=== PATIENT | male | born 1945 | race Caucasian/White ===

== ENCOUNTER 2024-03-08 06:00 | Inpatient (IN) | payer MEDICARE, SELFPAY ==
[2024-03-01 08:47] VITALS: BMI 26.7
[2024-03-08] VITALS (14 sets, daily range): BP systolic 96–164; BP diastolic 51–77; PULSE 71–95; RESP 12–20; TEMP 35.8–36.8; O2SAT 92–98; BMI 26.9
[2024-03-08] MEDS: LACTATED RINGERS 1,000 ML 42 ML IV ×2 (06:43→08:15)
--- NOTE | 2024-03-08 07:24 | PM.PREOP ---
Pre-operative Note Interval Note History & Physical reviewed/Exam performed by Physician: Yes Changes to H&P: No
[2024-03-08] MEDS: ACETAMINOPHEN 325 MG TABLET 975 MG PO (07:37)
[2024-03-08] MEDS: CEFAZOLIN 2 GM/100 ML PREMIX 100 ML IV ×3 (08:05→23:17)
[2024-03-08] MEDS: BUPIVACAINE 0.25% (PF) 30 ML, EPINEPHrine 0.15 MG INJ (08:17)
[2024-03-08] MEDS: BUPIVACAINE LIPOSOME 266 MG/20 ML VIAL INJ (08:18)
--- NOTE | 2024-03-08 08:20 | SUR.OPER ---
Prone on spine table, head in foam head support, padded chest and pelvic supports, gel pad at knees, lower legs supported by pillows; nipples, genitalia and toes free of pressure, arms secured on foam padded arm boards at <90 degrees abduction. Tape over blanket at thigh secured to table.
--- NOTE | 2024-03-08 10:14 | DI.RAD.S_ITS ---
PROCEDURE: XR LUMBAR SPINE 2V INDICATIONS: L3-4 TLIF TECHNIQUE: 3 views of the lumbar spine were acquired. COMPARISON: None. FINDINGS: Frontal and lateral fluoroscopic spot images are submitted, 2 images total. Postoperative changes are noted with pedicle screws, posterior fixation rods and intervertebral metallic cage reported in history as L3-4 TLIF. Fluoroscopic dose values are not delineated. IMPRESSION: Limited fluoroscopic spot images status post TLIF as discussed above. Dictated by: Theron Smith M.D. on 03/08/2024 at 10:19 Approved by: Theron Smith M.D. on 03/08/2024 at 10:24
--- NOTE | 2024-03-08 10:15 | PM.OP.1 ---
Operative Date/Time/Diagnoses Date of procedure: 03/08/24 Time of procedure: 07:40 Pre-op diagnosis: 1. L3-4, L4-5 history of laminectomies 2. L3-4, L4-5 foraminal stenosis Post-op diagnosis: same Procedure & Clinicians Procedure: 1. L3-4 Postero-lateral and posterior interbody fusion 2. L3-4 interbody cage placement. 3. L3-4 decompressive laminectomy with bilateral facetecomies 4. L3-4 Posterior non-segmental instrumentation 5. L4-5 left hemilaminectomy 6. Wallace of bone marrow from iliac crest 7. Utilization of microsurgical technique and operating microscope Same procedure as scheduled: Yes Indications: Patient has been having chronic back pain and worsening lumbar radiculopathy. Patient has history of L3-4 L4-5 hemilaminectomy with current L3-4, L4-5 left-sided foraminal and lateral recess stenosis correlating with his symptoms. Patient failed multiple conservative management with worsening pain weakness and numbness in his lower extremity. Patient has been having difficulty performing activity of daily living. After discussing risks benefits of treatment options, patient elected proceed with surgery. Surgeon: Dannie Morfin Recruitment Director: Luci Linares Click Yes if Unassisted: No Anesthesia Type: General Operative Notes Closure Type: primary Specimen(s): none sent Prosthetic devices, grafts, tissues, transplants, or devices: Globus CREO MIS screws, Rise cage Estimated Blood Loss (mL): 50 Blood products transfused: none Procedure in detail: Patient was seen in the preoperative area. Risks and benefits of the surgery was discussed with the patient. Informed consent was obtained from the patient and placed in the chart. Surgical site was marked. Patient was taken to the operative room. General anesthesia was administered. Prophylactic antibiotic was given to the patient less than 30 min before the incision was made. Patient was placed into a prone position on the Héctor table. Patient's back was then prepped and draped in the sterile fashion. Time-out was performed at this time. After patient was prepped and draped, patient's PSIS was palpated and marked bilaterally. Small 1 cm incision was made over the PSIS for placement of the reference probes. Two trocar was placed into the PSIS 1 on each side. The reference probe was attached to the trocar of the reference apparatus. At this time the C-arm imaging was used to confirm AP and lateral of L3-4 vertebrae and merged the C-arm imaging using the [employer] robotic navigation system with the CT of the lumbar spine. After successful merging was completed and confirmed, skin marker was used to tala out the skin incision using the [employer] robotic arm. Bilateral incision was made at this time. Pre templated trajectory was used and guided using the [employer] robotic navigation system for bilateral L3 and L4 pedicle screw placement. This was done by using the robotic arm to guide the high-speed bur to make a cortical entry point. Next a drill was placed also using the robotic arm and guided using the navigation system drilling partially through bilateral L3 and L4 pedicles. Next L3 and L4 pedicle screws it was pre templated and measured was placed onto the power semi driver and inserted into the pedicles bilaterally. After all 4 screws were placed C-arm imaging was taken of both AP and lateral to confirm the placement. Excellent placement of the screws were confirmed and a matched precisely with the pre planned screw placement using the navigation system. MARs retractor was inserted using [employer] guidence. Globus MARS retractors was placed inside the incision and docked onto the L3 lamina. Using microsurgical technique and operating microscope, a L3 laminectomy and L3-4 facetectomy was performed using a Kerrison rongeur. Patient was found have severe lateral recess and neural foramen stenosis which was fully decompressed after the laminectomy facetectomy. More than 75% of the facets were removed during the process of decompression rendering L3-4 level grossly unstable and required a fusion procedure at the same time. The disc space at L3-4 was identified, and a total diskectomy was performed at L3-4 level. The endplates were decorticated using a rasp and shaver. The total diskectomy and decortication was performed at L3-4 level in order to to accomplish a L3-4 fusion. The local bone from the laminectomy and facetectomy was saved for local bone grafting. After the total diskectomy and decortication was completed, Viacel bone graft material was combined with local bone that was harvested earlier. Patient was found have significant amount of epidural scarring from prior hemilaminectomy. Care was taken to protect the dura and no dural injury was encountered during the process of the decompression. At this time, a separate skin is incision was made over the iliac crest. A Jamshidi needle was inserted into the iliac crest through a separate skin incision. 5 cc of bone marrow aspiration was obtained through the separate skin incision using a Jamshidi needle from the iliac crest. The bone marrow aspiration was combined with local bone and the Viacel bone grafting material. The bone grafting material was placed into the L3-4 interbody space along with a expandable cage. The cage was expanded to its maximum height using the torque limiting screwdriver. The disc preparation as well as the cage insertion were also performed under navigation guidance. After the cage was placed, AP and lateral C-arm imaging was taken to confirm placement of the cage and excellent position was confirmed. The MARS retractor was heard redirected over the L4-5 interval. Using microsurgical technique and operating microscope a left-sided hemilaminectomy was performed using Kerrison rongeur and undercutting the L4-5 facet to further decompress the lateral recess. Globus MARS retractor was inserted and docked onto the L3-4 posterolateral gutter on the right side. Using the power drill, posterior-lateral decortication was performed at L3-4 level until bleeding cortical bone was identified. The remaining bone grafting material was placed into the L3-4 posterior lateral gutter he order to accomplish posterolateral fusion at the L3-4 level. At this time the tulips were attached to the L3 and L4 pedicle screw shanks. After measuring the length of the rods, they were inserted into the tulips of the pedicle screws and locked in place using locking caps and torque limiting screwdriver bilaterally. Total 4 caps and 2 titanium rods was used in order to complete the posterior instrumentation construct. After all the hardware was placed, and confirmed with AP and lateral C-arm imaging, the wound was then irrigated with sterile normal saline and packed with Ray-Thai gauze for 3 min to accomplish hemostasis. After the gauze was removed the deep fascia was closed with #1 Vicryl suture. The subcutaneous layer was closed with 2-0 Vicryl. The skin was closed with skin dougie. Patient tolerated the procedure well. There were no complications. The Operation could not have been safely performed without compromising the technical result or length of the procedure, without the assistance of a skilled surgical attendant. The surgical attendant was medically necessary for proper positioning, retraction and manipulation of instruments, proper exposure, surgical preparation, and manipulation of tissue. Neuro monitoring system was used to monitor patient's neurologic status throughout entire procedure. There was no disturbance of the neural monitoring signals throughout the case. Complications: none Post-operative Condition: stable Disposition: PACU Plan for aftercare: Admit to inpatient hospital
[2024-03-08] MEDS: OXYCODONE IR 5 MG TABLET PO ×2 (10:42→18:06)
[2024-03-08] MEDS: LACTATED RINGERS 1,000 ML 125 ML IV ×2 (11:30→19:51)
[2024-03-08] MEDS: OXYCODONE IR 10 MG TABLET PO ×4 (11:31→23:50)
--- NOTE | 2024-03-08 15:21 | PC.NURSE ---
Patient's provided this RN with the patient's advance directive, which is DNR. This RN called and spoke with JAM Linares and asked if the patient's code status could be changed from full code to DNR. JAM Linares explained that the patient should remain full code since they had an elective surgery. Advance directive has been copied and placed in patient's chart, and this RN notified patient to discuss further with surgeon.
--- NOTE | 2024-03-08 15:30 | OT.IP.EVAL ---
Current Diagnoses Spinal stenosis, lumbar region without neurogenic claudication (03/08/24) Postlaminectomy syndrome, not elsewhere classified (03/08/24) Surgery Performed Operation Date: 03/08/24 07:45 Actual Procedures p TLIF and posterior segmental instrumentation at L3-4 ,L4-5 Hemilaminectomy and partial facetectomy at L4-5 - Dannie Morfin MD Past Medical History (Last Updated 03/01/24 @ 09:17 by Pilar Villa, RN) CAD (coronary artery disease) Chronic back pain Costochondritis Esophagitis Gastric ulcer H. 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 EAN (obstructive sleep apnea) Spinal stenosis Surgical History (Last Reviewed 03/08/24 @ 06:30 by Maria C Rice, FRANKIE) History of appendectomy History of back surgery (~2006) History of cardiac cath History of colonoscopy History of knee surgery History of shoulder surgery (~1979) History of tonsillectomy and adenoidectomy Occupational Therapy Inpatient Evaluation/Re-Eval M1 PT/OT-IP Prior Functional Status Start: 03/08/24 15:19 Freq: NEEDED Status: Active Protocol: Document 03/08/24 16:28 CGR (Rec: 03/08/24 16:44 CGR [id number]) Medical Review Prior Functional Status Medical History Reviewed Yes Diet/Fluid Consistency Regular Communication WNLs Mobility and Gait Ind without AD at baseline, works out regularly Activities of Daily Living and IADL's Ind for all ADLs at baseline. 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 Social History Household Members spouse Living Arrangements House Number of Floors (Floors) Two Floors Number of Stairs To Enter/Railing? 2 steps with right rail to enter Home Environment Standard Height Toilet,Tub/ Shower Home Equipment Front Wheel Walker,Straight Cane,Raised Toilet Seat w/ Armrests,Tub Transfer Bench, Grab Bars In Shower Employment Status Retired M2 OT-IP Current Condition Start: 03/08/24 16:28 Freq: Status: Active Protocol: Document 03/08/24 16:28 CGR (Rec: 03/08/24 16:44 CGR [id number]) Occupational Therapy Current Condition Current Condition Evaluation Date 03/08/24 Treatment Diagnosis TLIF L3-5 Diagnosis Onset Date 03/08/24 Post Operative Precautions Lumbar Precautions Log Roll,No Twisting,Limit Bending,Lifting Restriction of 10 lbs,Gait Belt above Incisional Area M3 OT- IP Subjective and Pain Start: 03/08/24 16:28 Freq: Status: Active Protocol: Document 03/08/24 16:28 CGR (Rec: 03/08/24 16:44 CGR [id number]) OT- Subjective Occupational Therapy Visit Type Type Initial Evaluation Visit Start Time 15:07 Visit Stop Time 15:30 OT Pain Assessment Pain When Pain Assessed At Rest Pain Present Pain Present Pain Reported Location Back Intensity 2 Scale Used Numeric (0 - 10) Management Techniques Distraction,Modification of Treatment,Re-positioning, Timing of Activity with Medications M4 OT- IP ADL's Start: 03/08/24 16:28 Freq: Status: Active Protocol: Document 03/08/24 16:28 CGR (Rec: 03/08/24 16:44 CGR [id number]) OT [id number] Comments OT Self-Feeding Comments not meal time OT ADL-Grooming General Evaluation Grooming Ability Standby Assistance Comments OT Grooming Comments washed hands standing at sink OT ADL-Oral Care Comments Oral Care Comments not performed OT ADL-Dressing Comments OT Dressing Comments not performed but started the discussion that LB dressing would require or LB dressing equipment. OT ADL-Toileting General Evaluation Toileting Ability Standby Assistance Comments OT Toileting Comments pt urinated seated on toilet OT ADL-Bathing Comments OT Bathing Comments not performed M5 OT- IP IADL's Start: 03/08/24 16:28 Freq: Status: Active Protocol: Document 03/08/24 16:28 CGR (Rec: 03/08/24 16:44 CGR [id number]) OT-Instrumental Activities of Daily Living Deficits IADL Deficits Identified No Deficits Home Safety Awareness Awareness of Need for Assistance at Home Good Awareness Ability to Problem Solve Emergency Able to Problem Solve Situations Medication Management Medication Management No Deficits Identified Money Management Money Management No Deficits Identified Meal Preparation Meal Preparation Caregiver Provides Assist Bankruptcy Law Specialist Bankruptcy Law Specialist Caregiver Provides Assist Driving Driving Comments 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 OT- IP Functional Cognition Start: 03/08/24 16:28 Freq: Status: Active Protocol: Document 03/08/24 16:28 CGR (Rec: 03/08/24 16:44 CGR [id number]) Cognitive Factors Limiting Selfcare Function Cognitive Ability Level of Alertness Alert Patient Orientation Name,Age,Birthday,Month,Date, Year,Day of Week,Place, Situation Attention Span Ability Capable of Focused Attention, Capable of Sustained Attention Ability to Follow Commands Able to Follow Multi-Step Commands Memory Description No Deficits Noted Safety Awareness No Deficits Noted OT- Vision and Hearing OT- Hearing Assessment OT- Hearing Assessment WFL OT- Vision Assessment Visual Acuity Glasses All The Time Visual Attentiveness WFL Occular Pursuits WFL Visual Convergence WFL M7 OT- IP Mobility and Balance Start: 03/08/24 16:28 Freq: Status: Active Protocol: Document 03/08/24 16:28 CGR (Rec: 03/08/24 16:44 CGR [id number]) OT- Bed Mobility Assessment Rolling Type of Rolling Log Rolling Level of Assistance Standby Assistance,Head of Bed Elevated,Bedrails Supine to Sit Supine to Sit Assist Standby Assistance,Head of Bed Elevated,Bedrails Scooting Scooting to Edge of Bed Standby Assistance OT-Transfer Assessment Sit to and From Stand Sit to and from Stand Contact Guard Assistance,1 Person Assistance Transfers Transfer Ability Contact Guard Assistance,1 Person Assistance Technique Transfer Destination Bed,Chair,Toilet Transfer Technique Stand Step Pivot Devices Transfer Assistive Devices Gait Belt,Front Wheeled Walker Comments Mobility Comments CGA mobility around the room OT- Balance Assessment Sitting Balance and Reactions Static Sitting Balance Ability Good Dynamic Sitting Balance Ability Good M8 OT- IP Objective Assessments Start: 03/08/24 16:28 Freq: Status: Active Protocol: Document 03/08/24 16:28 CGR (Rec: 03/08/24 16:44 CGR [id number]) OT Gross Range of Motion Upper Extremity Range of Motion Assessment Within Functional Limits OT Strength Upper Extremity Strength Assessment Within Functional Limits Comments Strength Comments 5/5 OT- Coordination Assessment Upper Extremity Finger to Nose Test Within Functional Limits Finger Tapping Test Within Functional Limits OT-Muscle Tone Assessment Muscle Tone WNL Yes OT Sensation Assessment Edema Edema Absent M9 OT- IP Assessment and Plan Start: 03/08/24 16:28 Freq: Status: Active Protocol: Document 03/08/24 16:28 CGR (Rec: 03/08/24 16:44 CGR [id number]) OT Summary Assessment and Plan Potential Rehabilitation Potential Excellent Analytic Complexity at Evaluation Low Summary OT Impairments Pain,Balance,Functional Mobility,Dressing,Bathing, Activity Tolerance Progress Towards Goals Progressing Toward Goals Assessment Summary Pt presents as a low complexity evaluation s/p admit for L3-5 TLIF. Pt is doing very well and will benefit from 1 more OT session to readdress back precautions , LB dressing and home safety. Pt is likely to discharge home with assist from his as needed. Goals Grooming Goal Independent Dressing Goal Independent,Flatwork Tier,Sock Aid Toileting Goal Independent Bathing Goal Independent Toilet Transfer Goal Independent Shower Transfer Goal Independent Days to Meet Goals 2 Frequency of Treatment Other frequency 5x per week Treatment Plan OT Treatment Plan ADL Training,Functional Mobility,Patient/Family Education,Discharge Planning Other Treatment Recommendations and Next LB dressing, home safety, back Treatment Focus precautions Discharge Recommendations OT Discharge Recommendations Home with Assistance Transportation Needs at Discharge Private Vehicle
--- NOTE | 2024-03-08 15:31 | PT.IIE ---
Current Diagnoses Spinal stenosis, lumbar region without neurogenic claudication (03/08/24) Postlaminectomy syndrome, not elsewhere classified (03/08/24) Surgery Performed Operation Date: 03/08/24 07:45 Actual Procedures p TLIF and posterior segmental instrumentation at L3-4 ,L4-5 Hemilaminectomy and partial facetectomy at L4-5 - Dannie Morfin MD Surgical History (Last Reviewed 03/08/24 @ 06:30 by Maria C Rice, RN) History of appendectomy History of back surgery (~2006) History of cardiac cath History of colonoscopy History of knee surgery History of shoulder surgery (~1979) History of tonsillectomy and adenoidectomy Medical History (Last Updated 03/01/24 @ 09:17 by Pilar Villa, FRANKIE) CAD (coronary artery disease) Chronic back pain Costochondritis Esophagitis Gastric ulcer H. 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 2 steps with right rail to enter Home Environment Standard Height Toilet,Tub/ Shower Home Equipment Front Wheel Walker,Straight Cane,Raised Toilet Seat w/ Armrests,Tub Transfer Bench, Grab Bars In Shower Employment Status Retired M2 PT-IP Current Condition Start: 03/08/24 15:19 Freq: NEEDED Status: Active Protocol: Document 03/08/24 15:06 MB (Rec: 03/08/24 15:31 MB [id number]) Physical Therapy Current Condition Current Condition Evaluation Date 03/08/24 Treatment Diagnosis TLIF M3 PT-IP Subjective Start: 03/08/24 15:19 Freq: NEEDED Status: Active Protocol: Document 03/08/24 15:06 MB (Rec: 03/08/24 15:31 MB [id number]) Subjective Physical Therapy Visit Type Type Initial Evaluation Visit Start Time 15:06 Visit Stop Time 15:20 Number of [employer] Visits 0 Physical Therapy Visit Comments Patient Comments Pt is agreeable to PT. Therapy Pain Assessment Pain When Pain Assessed At Rest Pain Present Pain Present Pain Reported Location Back Intensity 2 Scale Used Numeric (0 - 10) M4 PT-IP Mobility and Gait Start: 03/08/24 15:19 Freq: NEEDED Status: Active Protocol: Document 03/08/24 15:06 MB (Rec: 03/08/24 15:31 [id number]) PT-Bed Mobility Assessment Rolling Type of Rolling Log Rolling,Roll to Left Level of Assist Standby Assistance,1 Person Assistance Supine to Sit Supine to Sit Standby Assistance,1 Person Assistance Scooting Scooting to Edge of Bed Standby Assistance PT-Transfer Assessment Sit to and From Stand Sit to and from Stand Contact Guard Assistance,1 Person Assistance,Use of Upper Extremities Equipment Transfer Assistive Device Gait Belt,Front Wheeled Walker Orthotic/Prosthetic Devices or Brace: No Transfers Transfer Destination Toilet Transfer Technique Ambulation Transfer Ability Level of Assist Contact Guard Assistance Comments Mobility Comments Orthostatic assessment with BP and HR in LUE: supine 132/57, 90; standing 123/70, 95; standing 1' 137/76, 92. Gait Assessment Gait Gait Assistance Required: Contact Guard Assist Distance (Feet) 15 Able to Maintain Weight Bearing Status Yes During Gait Assistive Devices Assistive Device Gait Belt,Front Wheeled Walker Orthotic/Prosthetic Devices or Brace: No Gait Deviations General Gait Pattern Antalgic Factors Limiting Gait Function Factors Limiting Gait Function Decreased Activity Tolerance, Poor Balance Comments Gait Comments Pt able to ambulate forwards and backwards with RW PT-Balance Assessment Sitting Balance and Reactions Static Sitting Balance Ability Good Dynamic Sitting Balance Ability Good Standing Balance and Reactions Static Standing Balance Ability Good Dynamic Standing Balance Ability Fair Device Used RW M5 PT-IP Objective Assessments Start: 03/08/24 15:19 Freq: NEEDED Status: Active Protocol: Document 03/08/24 15:06 MB (Rec: 03/08/24 15:31 MB [id number]) Orientation Orientation/Cognition Level of Alertness Alert Orientation Name,Age,Birthday,Month,Date, Year,Day of Week,Place, Situation Language Function Ability No Deficits Noted Safety Awareness Understands Safety Issues Memory Description No Deficits Noted Gross Range of Motion Upper Extremity ROM Impairments Defer to OT Lower Extremity ROM Assessment Within Functional Limits Strength Lower Extremity Strength Assessment Within Functional Limits Coordination Assessment Gross Coordination Gross Coordination WNL Sensation Assessment Sensation Gross Sensation WNL Muscle Tone Muscle Tone WNL Yes M6 PT-IP Treatment Start: 03/08/24 15:19 Freq: NEEDED Status: Active Protocol: Document 03/08/24 15:06 MB (Rec: 03/08/24 15:31 MB [id number]) Physical Therapy Treatment Exercises Exercises Ankle Pumps Education Education Provided Precautions,Post-Op Packet, Safety Other Treatments Other Treatment Performed Reviewd BLT precautions and log rolling M7 PT-IP Assessment and Plan Start: 03/08/24 15:19 Freq: NEEDED Status: Active Protocol: Document 03/08/24 15:06 MB (Rec: 03/08/24 15:31 MB [id number]) PT Summary Assessment and Plan Potential Rehabilitation Potential Excellent Status of Condition at Evaluation Stable Summary Impairments Pain,Balance,Bed Mobility, Transfers,Gait,Activity Tolerance Progress Towards Goals Progressing Toward Goals Assessment Summary Pt is a 78 y/o male presenting same day TLIF. Pt has minimal pain, presents with good LE strength and sensation and is not orthostatic. Initiated log rolling and back precaution training as well as transfers and short gait. Will progress gait and stair training next treatment date if pt is in the hospital. nearby for assessment. Goals Bed Mobility Goal Independent Transfer Goal Independent,Front Wheeled Walker Gait Goal Independent,Front Wheel Walker Gait Distance 100 Other Goals Pt will ascend and descend 2 steps with right rail ascend to allow safe home entry. Days to Meet Goals 3 Frequency of Treatment Frequency Of Treatment Twice a Day Treatment Plan Physical Therapy Treatment Plan Bed Mobility Training,Transfer Training,Gait Training, Therapeutic Exercise,Balance Retraining,Post Op Education, Discharge Planning,Hot or Cold Pack,Neuromuscular Re-ed, Coordination Retraining,Manual Therapy Precautions Lumbar Precautions Log Roll,No Twisting,Limit Bending,Lifting Restriction of 10 lbs,Gait Belt above Incisional Area Weight Bearing Status Allowed Weight Bearing Amount (enter % No restrictions or #) (%) Recommendations To Nursing Amount of Assist Needed Standby Assistance Discharge Recommendations PT Discharge Recommendations Home with Assistance Transportation Needs at Discharge Private Vehicle
[2024-03-08] MEDS: ONDANSETRON 4 MG/2 ML INJ IV ×2 (15:57→20:52)
[2024-03-08] MEDS: LORazepam 1 MG TABLET PO (19:34)
[2024-03-08] MEDS: ATORVASTATIN 20 MG TABLET 40 MG PO (20:52)
[2024-03-08] MEDS: SENNOSIDES 8.6 MG TABLET 17.2 MG PO (20:53)
[2024-03-08] MEDS: DOCUSATE 100 MG CAPSULE PO (20:53)
[2024-03-09] VITALS: BP 125/60; PULSE 101; RESP 16; TEMP 36.9; O2SAT 94
[2024-03-09] MEDS: OXYCODONE IR 10 MG TABLET PO ×3 (04:10→10:39)
[2024-03-09 05:00] VITALS: BP 116/55; PULSE 93; RESP 16; TEMP 37; O2SAT 92
[2024-03-09 08:00] VITALS: BP 127/60; PULSE 84; RESP 16; TEMP 36.9; O2SAT 100
[2024-03-09 08:28] VITALS: BP 127/60
[2024-03-09] MEDS: METOPROLOL ER 25 MG TABLET PO (08:28)
[2024-03-09] MEDS: LOSARTAN 25 MG TABLET PO (08:28)
[2024-03-09] MEDS: DOCUSATE 100 MG CAPSULE PO (08:28)
--- NOTE | 2024-03-09 09:35 | OT.IP.TRT ---
Current Diagnoses Spinal stenosis, lumbar region without neurogenic claudication (03/08/24) Postlaminectomy syndrome, not elsewhere classified (03/08/24) Surgery Performed Operation Date: 03/08/24 07:45 Actual Procedures p TLIF and posterior segmental instrumentation at L3-4 ,L4-5 Hemilaminectomy and partial facetectomy at L4-5 - Dannie Morfin MD Occupational Therapy Treatment Note M2 OT-IP Current Condition Start: 03/08/24 16:28 Freq: Status: Active Protocol: Document 03/08/24 16:28 CGR (Rec: 03/08/24 16:44 CGR [id number]) Occupational Therapy Current Condition Current Condition Evaluation Date 03/08/24 Treatment Diagnosis TLIF L3-5 Diagnosis Onset Date 03/08/24 Post Operative Precautions Lumbar Precautions Log Roll,No Twisting,Limit Bending,Lifting Restriction of 10 lbs,Gait Belt above Incisional Area M3 OT- IP Subjective and Pain Start: 03/08/24 16:28 Freq: Status: Active Protocol: Document 03/09/24 09:38 [facility] (Rec: 03/09/24 09:44 [facility] [id number]) OT- Subjective Occupational Therapy Visit Type Type Treatment Note Visit Start Time 09:18 Visit Stop Time 09:35 Occupational Therapy Visit Comments Patient Comments Pt agreed to get dressed. Pt's in the room. Patient/Caregiver Goals TO go home. OT Pain Assessment Pain When Pain Assessed At Rest Pain Present Pain Present Denied Pain M4 OT- IP ADL's Start: 03/08/24 16:28 Freq: Status: Active Protocol: Document 03/09/24 09:38 [facility] (Rec: 03/09/24 09:44 [facility] [id number]) OT ADL-Dressing General Eval Upper Body Dressing Ability Independent Lower Body Dressing Ability Minimal Assistance Areas Needing Assistance Socks,Shoes Assistive Devices Dressing Assistive Devices Ccna,Sock Aid Comments OT Dressing Comments Pt able to practice use of police justice and sock aid for LB dressing needs for LB dressing needs. Pt still needing assist to tie his shoes. Suggested pt to get LB dressing equipment to increase his independence and ease for dressing. OT ADL-Toileting Comments OT Toileting Comments Pt educated can use the FWW over the toilet when urinating . To take the urinal at home for night use. OT ADL-Bathing Comments OT Bathing Comments Educated to cover the dressing for showering needs. M5 OT- IP IADL's Start: 03/08/24 16:28 Freq: Status: Active Protocol: Document 03/08/24 16:28 CGR (Rec: 03/08/24 16:44 CGR [id number]) OT-Instrumental Activities of Daily Living Deficits IADL Deficits Identified No Deficits Home Safety Awareness Awareness of Need for Assistance at Home Good Awareness Ability to Problem Solve Emergency Able to Problem Solve Situations Medication Management Medication Management No Deficits Identified Money Management Money Management No Deficits Identified Meal Preparation Meal Preparation Caregiver Provides Assist Drafting Layout Man Drafting Layout Man Caregiver Provides Assist Driving 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 Just needing reminder to not hesitate when coming to stand. M7 OT- IP Mobility and Balance Start: 03/08/24 16:28 Freq: Status: Active Protocol: Document 03/09/24 09:38 [facility] (Rec: 03/09/24 09:44 [facility] [id number]) OT-Transfer Assessment Sit to and From Stand Sit to and from Stand Standby Assistance Comments Mobility Comments SBA with FWW OT- Balance Assessment Sitting Balance and Reactions Static Sitting Balance Ability Normal Dynamic Sitting Balance Ability Good Standing Balance and Reactions Static Standing Balance Ability Good M8 OT- IP Objective Assessments Start: 03/08/24 16:28 Freq: Status: Active Protocol: Document 03/08/24 16:28 CGR (Rec: 03/08/24 16:44 R [id number]) OT Gross Range of Motion Upper Extremity Range of Motion Assessment Within Functional Limits OT Strength Upper Extremity Strength Assessment Within Functional Limits Comments Strength Comments 5/5 OT- Coordination Assessment Upper Extremity Finger to Nose Test Within Functional Limits Finger Tapping Test Within Functional Limits OT-Muscle Tone Assessment Muscle Tone WNL Yes OT Sensation Assessment Edema Edema Absent M9 OT- IP Assessment and Plan Start: 03/08/24 16:28 Freq: Status: Active Protocol: Document 03/09/24 09:38 [facility] (Rec: 03/09/24 09:44 [facility] [id number]) OT Summary Assessment and Plan Potential Rehabilitation Potential Excellent Analytic Complexity at Evaluation Low Summary Progress Towards Goals Progressing Toward Goals Assessment Summary Able to go over LB dressing needs andn suggest equipment. Pt to go home with his . Goals Grooming Goal Independent Dressing Goal Independent,Ccna,Sock Aid Toileting Goal Independent Bathing Goal Independent Toilet Transfer Goal Independent Shower Transfer Goal Independent Treatment Plan OT Treatment Plan ADL Training,Functional Mobility,Patient/Family Education,Discharge Planning Discharge Recommendations OT Discharge Recommendations Home with Assistance Home Equipment Needs LB dressing eequipment Transportation Needs at Discharge Private Vehicle
--- NOTE | 2024-03-09 10:44 | PM.DS.1 ---
History of Present Illness History of Present Illness Date Patient Seen: 03/09/24 Time Patient Seen: 07:45 Chief complaint: Tlif *OPB* Narrative: Patient has been having chronic back pain and worsening lumbar radiculopathy. Patient has history of L3-4 L4-5 hemilaminectomy with current L3-4, L4-5 left-sided foraminal and lateral recess stenosis correlating with his symptoms. Patient failed multiple conservative management with worsening pain weakness and numbness in his lower extremity. Patient has been having difficulty performing activity of daily living. After discussing risks benefits of treatment options, patient elected proceed with surgery. Discharge Providers Provider Date of admission: 03/08/24 06:00 Discharge Date: 03/09/24 Primary care physician: Alec Rodriguez MD Consults: 03/08/24 11:18 Consult to Occupational Therapy Evaluate & Treat Comment: Physician Instructions: Evaluate and treat Consult to Physical Therapy Evaluate & Treat Comment: Physician Instructions: Evaluate and Treat Discharge provider: Sotero Hernandez PA-C Summary Hospital Course Discharge Diagnosis: 1. L3-4, L4-5 history of laminectomies 2. L3-4, L4-5 foraminal stenosis Hospital Course: rocedure: 1. L3-4 Postero-lateral and posterior interbody fusion 2. L3-4 interbody cage placement. 3. L3-4 decompressive laminectomy with bilateral facetecomies 4. L3-4 Posterior non-segmental instrumentation 5. L4-5 left hemilaminectomy 6. 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 Utilization of microsurgical technique and operating microscope Same procedure as scheduled: Yes Surgeon: Dannie Morfin [employer] Workers: Luci Haddad Yes if Unassisted: No Anesthesia Type: General Operative Notes Closure Type: primary Specimen(s): none sent Prosthetic devices, grafts, tissues, transplants, or devices: Globus CREO MIS screws, Rise cage Estimated Blood Loss (mL): 50 Blood products transfused: none Status at Discharge Cognitive/behavioral status at discharge: oriented Functional status at discharge: uses cane/walker Overall status at discharge: patient is progressing back to baseline Time Spent with Patient Time spent: Less than 30 minutes Exam Vital Signs (past 8 hours): - 03/09/24 05:00 03/09/24 08:00 03/09/24 08:28 Temperature 98.6 F 98.4 F Pulse Rate 93 H 84 Respiratory Rate 16 16 Blood Pressure 116/55 L 127/60 127/60 Pulse Oximetry 92 100 Oxygen Flow Rate 0 03/09/24 08:28 Temperature Pulse Rate Respiratory Rate Blood Pressure 127/60 Pulse Oximetry Oxygen Flow Rate Oxygen Delivery Method Room Air Oxygen Flow Rate 0 Narrative Exam Narrative: Patient found lying comfortably in bed. Dressing intact left-sided incision has blood saturating through. 5/5 PF, DF, EHL on bilateral lower extremities. Sensation to light touch intact throughout BLE, calves soft and compressible. Resp Effort & Inspection: normal respiratory effort and able to speak in complete sentences [facility] Medical History (Updated 03/01/24 @ 09:17 by Pilar Villa, FRANKIE) Spinal stenosis EAN (obstructive sleep apnea) History of migraine Mass of right testicle Hiatal hernia Gastric ulcer H. pylori infection Esophagitis Costochondritis Chronic back pain Inferior ME (~07/2016) Hyperlipidemia HTN (hypertension) CAD (coronary artery disease) Surgical History History of cardiac cath History of tonsillectomy and adenoidectomy History of shoulder surgery (~1979) History of knee surgery History of colonoscopy History of back surgery (~2006) History of appendectomy Social History household members: spouse Smoking Status: Never smoker Discharge Assessment & Plan Assessment and Plan Assessment: L3-4 TLIF L4-5 hemilaminectomy Plan of Treatment: Dressing change. Discharge to home pending PT approval. Ambulate with assistive devices. No deep bending or twisting at the waist. No lifting more than 10 pounds. Multimodal pain control. Baseline pain relief acetaminophen 500 mg q.4 hours PRN. Breakthrough pain and oxycodone 5 mg q.4 hours PRN. Hydroxyzine 25 mg Q 8 hours postoperative nausea and spasms. Follow up in clinic 2 weeks for wound check. Discharge Plan Discharge Plan Patient Disposition: Home Provider Discharge Comment: DC pending PT approval Discharge orders & Medications Prescriptions: New acetaminophen 325 mg Tablet 650 mg PO Q6H PRN (Reason: Fever/Mild Pain (1-3)) Qty: 120 0RF docusate sodium 100 mg Capsule 100 mg PO BID PRN (Reason: constipation) Qty: 30 0RF ondansetron 4 mg Tablet,Disintegrating 4 mg sublingual Q8HR Qty: 10 1RF oxycodone 5 mg Tablet 5 mg PO Q4H PRN (Reason: Pain, Moderate (4-6)) Qty: 40 0RF Continued atorvastatin 40 mg tablet 40 mg PO ONCE PM losartan 25 mg tablet 25 mg PO DAILY metoprolol succinate 25 mg tablet extended release 24 hr 25 mg PO DAILY aspirin 81 mg Capsule 81 mg PO DAILY Follow up/Referrals: Alec Rodriguez MD [Primary Care Provider] - Dannie Morfin MD [Physician] - 03/22/24 10:30 am (Follow up w/ Sunitha Vinson PA-C, at [facility] in [place].) Diet/Activity/Treatments Diet: Diet as Tolerated Activity: No deep bending or twisting at the waist. No lifting more than 10 pounds. Skin/Wound/Dressing Care Report to your healthcare provider any signs of infection, such as:: chills, fever, night sweats, unusual drainage and unusual redness Dressing: May shower. Keep dressings as dry as possible. If dressing becomes wet or dirty, may remove and replace with clean, dry gauze. No bathing or otherwise soaking incisions. Do not apply any creams, lotions, or ointments to incisions. Visit Report/Discharge Packet Instructions: Stool Softeners, Ondansetron, Acetaminophen, Oxycodone, DI for Transforaminal Lumbar Interbody Fusion Stand Alone Forms: Patient Portal/API, Stroke Signs & Symptoms, Surgery Discharge Discharge Data Primary Care Provider: Alec Rodriguez Quality VTE Deep Vein Thrombosis/Pulmonary Embolism Present on Admission: No
--- NOTE | 2024-03-09 10:50 | PC.NURSE ---
Pt is dressed and ready for discharge home with Spouse. IV has been removed. Went over d/c instructions with Pt and Spouse-discussed d/c meds, time of last dose, reviewed stroke education, s/s of infection, back precautions, encouraged Pt to drink plenty of fluids to prevent constipation or dehydration, no driving while on narcotics, take stool softener as ordered to prevent constipation, showering, do not take more than 3000mg of Acetaminophen in 24 hours to prevent damage to your liver and follow up instructions. Pt denied further questions and was taken out via w/c by SPEED OPERATOR to POV with Spouse and all belongings.
--- NOTE | 2024-03-09 11:03 | CM.DANOTE ---
Initial DCP Assessment Visit Note Reviewed EMR and team rounds for pt's medical status and updates. Met with pt, spouse, and RN to introduce self and role, pt was found to be alert/oriented, dressed, and preparing for home d/c. Pt lives modified independently in his own home with spouse in [place]. His spouse will be transporting him home this morning. They both denied any CM assistance or resource needs for d/c at this time. No further d/c needs indicated at this time. Payor: [employer] OCN Attending: Dr. Morfin Pt is a 78 year-old M post-op day 1 from a lumbar TLIF surgery. He has a hx of a lower back injury from 40-years ago that has progressively become more painful and debilitating, despite having had 2-prior lumbar surgeries and physical therapy in attempts at lasting pain relief. He shared that he has sharp, painful spasms on his left side, and left-sided radiculopathy and numbness. He does have a plan for OP PT once he's been cleared by Ortho in about 6-weeks. No further needs are identified at this time. Discharge Planning/Care Management Advanced directive, confirm from FAMILY Start: 03/08/24 14:58 Freq: Q24H Status: Discharge Protocol: Document 03/08/24 14:58 J (Rec: 03/08/24 15:26 J [id number]) Advance Directive, confirm on record Time 15:00 Person contacted Spouse Copy received Yes CM Discharge Assessment Start: 03/09/24 10:59 Freq: Status: Active Protocol: Document 03/09/24 11:00 DPL (Rec: 03/09/24 11:03 DPL [id number]) Discharge Planning Assessment Assigned Fiber Optics Engineer MINDI Randhawa Advance Directives? Yes Advance Directives on File No: provided copy History Provided By Patient,Family Member Expected Length of Stay 1 Has Patient been admitted in last 30 No days? Prior Living Arrangements House Household Members spouse Type of transporation used prior to Drives own vehicle admit Independent with ADL's No: modified independent with walker, cane Is patient alert and oriented? Yes Needs Assistance With Home Chores / Shopping Caregiver for Another No Community Services used prior to Physical Therapy admission: DME Already Rented / Owned Bath Bench,Elevated Toilet Seat,FWW / Walker,Cane Patient/Family Preference OP PT Therapy Barriers to Discharge No Discharge Plan Home Community Services Physical Therapy Transportation Arrangement Spouse Referrals Initiated None needed Whiteboard Updated in Patient Room with Yes name and ext. # of Fiber Optics Engineer Review Status In Process Please Provide Date Initial DC 03/09/24 Assessment Was Performed Pre-Anesthesia Assessment Start: 03/01/24 08:47 Freq: Status: Discharge Protocol: Document 03/01/24 08:47 LB (Rec: 03/01/24 09:16 LB [id number]) Pre-Anesthesia Assessment Patient Information Reviewed Via Phone Assessment Assessment Completed With Patient H&P Completed Within 30 Days Yes: 03/08/24 Diagnostic Results BMP/CMP,CBC Comment 01/14/24, scanned in. Primary Care Provider Alec Rodriguez Seen Specialist in Last 12 Months Yes Specialist Seen Arborer Primary Language Algerian Preferred Language Algerian Tooling Engineering Tech Required No Height 170.18 cm Weight 77.564 kg Body Mass Index (BMI) 26.7 Hearing Ability Normal Visual Assist Glasses Dentition Type Teeth, Natural Present,Teeth, Missing Barriers to Learning None Hx Anesthesia Reactions No Hx Family Anesthesia Reaction No Hx Malignant Hyperthermia No Hx Blood Transfusions No Anesthesia Review Requested No Roadmaster No alcohol intake frequency holidays/special occasions only Smoking Status Never smoker Substance Use Type does not use Pain Present Pain Reported Musculoskeletal Symptoms Back Pain,Difficulty Walking, Muscle Spasms,Numbness History of Falling (Recent or History of No ) Patient is completely paralyzed or No completely immobile Prosthesis or Orthotic Device Wheelchair Mental Status Oriented to own ability Is patient on oxygen? No Does patient have BRAY/SOB No Hx Sleep Apnea Yes CPAP/BIPAP use not prescribed Currently Taking a Beta Sam Yes: Metoprolol Can You Climb a Flight of Stairs Without Yes SOB Hx Chest Pain No Hx SOB No Hx Syncope or Dizziness No Anti-Coagulant Therapy Yes: aspirin 81mg Has a Arborer Yes Arborer name Dr [facility] Cardiac Testing Yes: EKG Hx Pacemaker/ICD No Cardiac Clearance Received Yes Dysphagia No Gastrointestinal Symptoms Reflux Urinary Catheter Present No Hx Urinary Self Catheterization No Diabetes No Hx Drug Resistant Organism No Presence of External or Internal Medical Yes: heart stents x3. Devices Have you had any close contact with No someone diagnosed with COVID-19? Received a COVID vaccine? Yes Marital Status Lives With spouse Current Living Arrangements House Number of Floors (Floors) Two Floors Number of Stairs To Enter/Railing? 20 stairs with railing Support System Spouse Does the Patient Have Assistance After Yes Surgery Patient Discharge Plan Description Return Home Feels Safe in Current Environment Yes Do you have thoughts of harming yourself None or others? Do You Have Any Spiritual Beliefs That No May Affect Your HC Choices? Do You Have Any Cultural Practices That No May Affect Your HC Choices? Who Can We Speak to About Patient's Care Family/friends Identifying Code for Release of Patient declines to issue Information Health Care Proxy/Next of Kin María keith Health Care Proxy Emergency Contact Name María keith Emergency Contact Advance Directives? Yes Advance Directives on File No Requested Patient Bring Advanced Yes Directives DOS Power of Lead Python Developer Yes Power of Lead Python Developer Name María keith Power of Lead Python Developer Phone Number María keith PAC Instructions Assistance for 24 hours post- op,Durable medical equipment, Medications to take/avoid, Nasal antibiotic,No ETOH/ petroleum product on skin DOS, NPO,Pre-surgical wash,Sensory aids,Sturdy shoes/comfortable clothes,Do not bring valuables and remove jewelry
== END 2024-03-09 10:55 | disposition home or self-care (01) | DRG 455 ==
LOC: AC 06:02 → OR 11:45 → AC 11:45
PROVIDERS: Admitting Provider Orthopaedic Surgery Orthopaedic Surgery of the Spine; PCP Family Medicine; Referring Provider Orthopaedic Surgery Orthopaedic Surgery of the Spine; Visit Provider Orthopaedic Surgery Orthopaedic Surgery of the Spine
PROC: 0SG00AJ Fusion of Lumbar Vertebral Joint with Interbody Fusion Device, Posterior Approach, Anterior Column, Open Approach (ICD-10-PCS; principal; 2024-03-08 07:45)
DX: M48.061 Spinal stenosis, lumbar region without neurogenic claudication (principal); M96.1 Postlaminectomy syndrome, not elsewhere classified; M54.16 Radiculopathy, lumbar region; E78.5 Hyperlipidemia, unspecified; I10 Essential (primary) hypertension; I25.2 Old myocardial infarction; Z95.5 Presence of coronary angioplasty implant and graft
CPT/HCPCS: 72100; 76000; 97161; 97165; 97530; 97535; C1713; C9290; J0171; J0330; J0690; J1100; J1170; J2405; J2704; J3010